=== PATIENT | female | born 1970 | race Caucasian/White ===

== ENCOUNTER → 2024-12-22 15:54 | Outpatient (BNVA) | payer OTHER, SELFPAY | PROVIDERS: Visit Provider Emergency Medicine | DX: S60.211A Contusion of right wrist, initial encounter (principal); W07.XXXA Fall from chair, initial encounter | CPT/HCPCS: 29125; 73090; 73110; 99203 ==

== ENCOUNTER → 2024-12-29 14:35 | Outpatient (BNVA) | payer OTHER, SELFPAY | PROVIDERS: Visit Provider Emergency Medicine | DX: S60.211D Contusion of right wrist, subsequent encounter (principal); W07.XXXD Fall from chair, subsequent encounter | CPT/HCPCS: 99213 ==

== ENCOUNTER → 2025-01-06 14:36 | Outpatient (BNVA) | payer OTHER, SELFPAY | PROVIDERS: Visit Provider Emergency Medicine | DX: S63.501D Unspecified sprain of right wrist, subsequent encounter (principal); S60.211D Contusion of right wrist, subsequent encounter; W07.XXXD Fall from chair, subsequent encounter | CPT/HCPCS: 99213 ==

== ENCOUNTER 2025-01-27 10:05 | Outpatient (REF) | payer OTHER, SELFPAY ==
--- NOTE | ~2025-01-27 | XR_ITS ---
EXAMINATION: XR WRIST, RIGHT CLINICAL INFORMATION: M79.641 - Pain in right hand COMPARISON: X-ray 12/22/2024 TECHNIQUE: PA, lateral, and oblique views of the right wrist. FINDINGS: No acute fracture, dislocation or suspicious bony lesion is identified Mild first CMC arthritis. Mild first IP joint arthritis. No erosions. No significant soft tissue swelling. No radiopaque foreign body. XR/XR wrist RT w scaphoid IMPRESSION: No radiographic evidence of acute osseous findings. Electronically signed by: Dani Anguiano MD 01/28/2025 12:55 PM EST
== END 2025-01-27 10:06 | disposition home or self-care (01) ==
LOC: HO.HOSX 10:05
DX: M25.531 Pain in right wrist (principal)
CPT/HCPCS: 73110; 99202

== ENCOUNTER 2025-01-27 13:11 | Outpatient (AMB) | payer OTHER, SELFPAY ==
--- NOTE | 2025-01-27 13:18 | A.OFFVIS_ITS ---
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 She was seen at [facility] on 12/29/24. She was given a Velcro wrist brace to wear but continued to have pain in the dorsal aspect of wrist that wraps around the thumb and occasionally wakes her up at night. Patient is taking Tylenol PRN with some relief. She denies any numbness, tingling, finger locking. She denies any previous fractures to right hand. Patient works as a Teacher for [employer]. Allergies No Known Allergies Allergy (Verified 01/27/25 13:20) HPI HPI MEDICAL CARE EVALUATION SPECIALIST-Right Wrist Sprain-WC DOI 12/22/2024: Details: Nubia is a 55 year old right hand dominant female who presents today as a New Patient with complaints of Right Wrist Pain after taking a fall while at work on 12/22/24. Patient states that she fell at work, and fell with most of her body weight on the right hand and wrist. She was seen at [facility] on 12/29/24. She was given a Velcro wrist brace to wear but continued to have pain in the dorsal and radial aspect of wrist that wraps around the thumb and occasionally wakes her up at night. Patient is taking Tylenol PRN with some relief. She denies any numbness, tingling, finger locking. She denies any previous fractures to right hand. Patient works as a Teacher for [employer]. [facility] Social History (Updated 01/27/25 @ 13:21 by SHAHIDA Mcgarry) Alcohol intake: never Patient Tobacco Use Status: Never used Tobacco Current occupational status: employed Current occupation: rt handed, teacher Review of Systems Const All systems reviewed & are unremarkable except as noted in HPI and below Physical Exam Vital Signs: BMI result Body Mass Index 40.3 Extrem Other: Patient is alert, oriented, and in no acute distress. Neuro: Normal sensation of the tips of all digits of the right hand at this time Vascular: Cap refill brisk Pain: Significant tenderness to palpation of the scaphoid tubercle of the right wrist Patient also reports tenderness to palpation about the anatomical snuffbox and radial styloid No tenderness to palpation on the distal ulna, ulnar styloid, DRUJ, or elsewhere in the right wrist ROM: Patient is able to make a closed fist and extend all digits of the right hand fully Range of motion of the right wrist in terms of flexion, extension is significantly limited due to pain Skin: No lacerations or abrasions. General: No ecchymosis, erythema, or evidence of infection. Psych: Appears grossly normal Affect normal Attitude cooperative Results Reviewed Results Reviewed: X-rays obtained in the office today and independently reviewed by me, Watson Askew PA-C, demonstrate questionable area of lucency on the distal aspect of the right scaphoid waist concerning for potential occult fracture versus nutrient vessel. Assessment & Plan Assessment & Plan (1) Tenderness of anatomical snuffbox: Code(s): M79.643 - Pain in unspecified hand Category: Medical Plan 1. Tenderness of anatomical snuffbox and scaphoid tubercle of right wrist Date of injury November 2024 Patient is educated about this condition Patient is educated about the typical diagnostic and treatment course At this time, due to the fact that the patient is still experiencing significant tenderness in the scaphoid tubercle and anatomical snuffbox more than 1 month from injury, I do feel that has most prudent to order an MRI of the right wrist to assess the health of the scaphoid and other bones of the right wrist In the meantime, patient is provided with a Velcro thumb spica splint to be worn like a cast except for when bathing No lifting with the right upper extremity Urgent MRI is ordered at this time Patient will follow-up after MRI for results review and discussion of further treatment options with Dr. Herrera Patient understands this and is amenable to this plan Orders: Orders MR wrist RT wo con Today M79.643 - Pain in unspecified hand XR wrist RT w scaphoid Today M79.641 - Pain in right hand Coding Level of Care Code New Pt Level 3 (41434) Diagnoses Tenderness of anatomical snuffbox M79.643
[2025-01-27 13:19] VITALS: BMI 40.3
--- OUTSIDE RECORDS SUMMARY | 2025-01-27 15:39 | XMS_ITS | Clinical Summary ---
Author Organization [facility] Address [address] [place] [id number] Phone Care Team Providers Care All Around Presser Name Role Phone Kamilla Mckeon MD Primary Care Provide r Allergies Active Allergy Reactions Criticality Noted Date Comments Pollen Extracts Sneezing 10/31/2024 Medications meloxicam (MOBIC) 7.5 MG tablet 1 tablet Orally Once a day; Duration: 30 day(s) Active progesterone (PROMETRIUM) 200 mg capsule TAKE 1 CAPSULE BY MOUTH EVERY DAY FOR 28 DAYS 5 Active estradioL (VIVELLE-DOT) 0.05 mg/24 hr 5 Active estradioL (ESTRACE) 0.01 % (0.1 mg/gram) vaginal cream INSERT 1 GRAM VAGINALLY TWICE A WEEK EVERY DAY AT BEDTIME 5 Active loratadine (CLARITIN) 10 mg tablet 1 tablet Orally Once a day; Duration: 30 day(s) Active ALPRAZolam (XANAX) 0.5 MG tablet 1 tablet Orally Twice a day Active magnesium 200 mg tablet Magnesium Active Lactobacillus acidophilus (PROBIOTIC ACIDOPHILUS ORAL) Probiotic Active ascorbic acid, vitamin C, (ASCORBIC ACID) 250 mg Chew Vitamin C Active GOLDENSEAL ORAL Goldenseal Act kristen omega 6-iqj-moh-fish oil (FISH OIL) 1,000 (120-180) mg Cap Fish Oil Active GARLIC OIL ORAL Garlic Acti ve calcium carbonate/vitam in D3 (CALCIUM 600 + D,3, ORAL) Calcium 600+D Active fluticasone propionate (FLONASE ALLERGY RELIEF) 50 mcg/actuation nasal spray Flonase Active multivit with minerals/lutein (MULTIVITAMIN 50 PLUS ORAL) Multivitamin Act kristen b complex vitamins capsule Take 1 capsule by mouth daily. Active olopatadine (PATANOL) 0.1 % ophthalmic solution Place 1 drop into each eye 2 (two) times a day. 5 mL 12 Active Active Problems Problem Noted Date Diagnosed Date Edema of right lower leg 10/31/2024 Food allergy 10/31/2024 Severe obesity 10/31/2024 Thyroid disorder 10/31/2024 Trigeminal neuralgia 10/31/2024 Encounters Date Type Department Care Team Description 10/31/2024 9:00 AM EDT Office Visit [facility] at [address] [address] [place] Vil[place]as, EVELIO Allergic conjunctivitis of left eye and rhinitis (Primary Dx) from Last 3 Months Immunizations No known immunizations Social History Tobacco Use Types Packs/Day Years Used Date Smoking Tobacco: Never Smokeless Tobacco: Never Education Answer Date Recorded Are you interested in more education? Not on juliann e 05/03/2024 Are you concerned about learning? Not on file 05/03/2024 No 05/03/2024 No 05/03/2024 Digital Access Answer Date Recorded No 05/03/2024 No 05/03/2024 Reliable internet access at home? Not on file 05/03/2024 Device with a working camera? Not on file Comments No Sex and Gender Information Value Date Recorded Sex Assigned at Not on file Legal Sex Female 3:02 PM EDT Gender Identity Not on file Sexual Orientation Not on file Last Filed Vital Signs Vital Sign Reading Time Taken Comments Blood Pressure 109/73 10/31/2024 9:03 AM EDT Pulse 74 10/31/2024 9:03 AM EDT Temperature 36.4 C (97.5 F) 10/31/2024 9:03 AM EDT Respiratory Rate 16 10/31/2024 9:03 AM EDT Oxygen Saturation 96% 10/31/2024 9:03 AM EDT Inhaled Oxygen Concentration - - Weight 108.9 kg (240 lb) 10/31/2024 9:03 AM EDT Height - - Body Mass Index - - Plan of Treatment Health Maintenance Due Date Last Done Comments Adult Td,Tdap Booster 1972 LIPID PANEL 1972 DEPRESSION SCREENING 1984 HEPATITIS C SCREENING 01/17/1990 HIV ONE-TIME SCREENING (18-65 YEARS) 01/17/1990 PAP SMEAR 01/17/1993 MAMMOGRAM 2012 COLOGUARD 01/17/2017 COLONOSCOPY 01/17/2017 COLORECTAL CANCER SCREENING 01/17/2017 FIT TEST 01/17/2017 FOBT 01/17/2017 SIGMOIDOSCOPY 01/17/2017 VIRTUAL COLONOSCOPY 01/17/2017 PNEUMOCOCCAL VACCINES (50+ years) (1 of 1 - PCV) 01/17/2022 ZOSTER VACCINES (1 of 2) 01/17/2022 INFLUENZA VACCINE (#1) 2024 , 12/28/2022, 12/05/2021, Additional history exists COVID-19 VACCINE ( - 2024- season) 2024 01/08/2024, 12/05/2021, 12/12/2020, Additional history exists RSV VACCINE (1 - 1-dose 75+ series) 01/17/2047 SMOKING STATUS SCREENING (Once After 26 Yrs) Completed 10/31/2024 HEPATITIS A VACCINES Aged Out No long er eligible based on patient's age to complete this topic HIB VACCINES Aged Out No longer eligi ble based on patient's age to complete this topic MENINGOCOCCAL VACCINES (ACWY) Aged Out No longer eligible based on patient's age to complete this topic MENINGOCOCCAL VACCINES (B) Aged Out N o longer eligible based on patient's age to complete this topic Medical Devices Not on file Insurance [facility] Care Teams All Around Presser Relationship Specialty Start Date End Date Kamilla Mckeon MD [address] [place] [id number] PCP - General Internal Medicine 05/03/24 Additional Source Comments The information contained in this document represents components of the legal health record. It is not the complete legal health record.[facility]
--- OUTSIDE RECORDS SUMMARY | 2025-01-27 15:39 | XMS_ITS | Patient Health Record ---
Author Organization [facility] Address [address] [place] [address] Care Team Providers Care Cement Side Laster Name Role Phone Kamilla Mckeon MD Primary Care Provider [place] Unavailable [phone] Allergies No Known Allergies Reason For Referral No Information Medications Medication SIG (Take, Route, Fr equency, Duration) Notes Start Date End Date Status Xanax 0.5 MG 1 tablet Orally Twice a day Not-Taking Fish Oil Active Claritin 10 MG 1 tablet Orally Once a day; Duration: 30 day(s) Active Meloxicam 7.5 MG 1 tablet Orally Once a day; Duration: 30 day(s) Active Multivitamin Active Turmeric Active [place] Thyroid Not-T aking Garlic Active Calcium 600+D Not-Ta stu Magnesium Active Flonase Not-Taking Zinc Active Goldenseal Not-Takin g Vitamin C Active Probiotic Not-Taking Vitamin D Active Valtrex 500 MG 1 tablet Orally Once a day; Duration: 10 day(s) Not-Taking Social History Tobacco Use: Social History Observation Description Date Details (start date - stop date) Never Smoker NA - NA Tobacco Use/Smoking Question Answer Notes Are you a: nonsmoker Alcohol Screen Question Answer Notes Did you have a drink containing alcohol in the p ast year? No Points 0 Interpretation Negative Tobacco use other than smoking: Question Answer Notes Are you an other tobacco user? No Problems Problem Type SNOMED Code ICD Code Onset Dates Problem Status W/U Status Risk Notes Problem Plantar fascial fibromatosis ([id number]) Plantar fasciitis, bilateral (M72.2) Active confirmed Plan Of Treatment No Information Insurance Providers Payer Name Payer Address Payer Phone Subscriber Number Group Number Insured Name Patient Relationship to Insured Coverage Start Date Coverage End Date [facility] [address] [place] [address] [id number] Nubia Mcbride Self - patient is the insured Medical (General) History Medical History History ICD Code heel pain Knee Pain edema hip pain Thyroid disorder Trigeminal neuralgia Back,Hip,and Knee pain Broken bones thyroid Chicken pox Surgical History Surgery Date(Month/Year) tonsillectomy 05/1999
== END 2025-01-27 13:52 | disposition home or self-care (01) ==
LOC: HO.HOS 13:11
DX: M79.641 Pain in right hand (principal); M25.531 Pain in right wrist
CPT/HCPCS: 99203

== ENCOUNTER → 2025-01-27 13:13 | Outpatient (BNV) | payer OTHER, SELFPAY | PROVIDERS: Visit Provider Radiology Diagnostic Ultrasound | DX: M79.641 Pain in right hand (principal) | CPT/HCPCS: 73110 ==

== ENCOUNTER 2025-01-31 11:50 | Outpatient (REF) | payer OTHER, SELFPAY ==
--- NOTE | ~2025-01-31 | MR_ITS ---
CLINICAL HISTORY: M79.643 - Pain in unspecified hand --- Additional Notes or Special Instructions: Concern for occult scaphoid fracture MR right wrist without gadolinium Comparison: None provided Findings: There are no fractures. The scaphoid is intact. No joint effusion. There is some edema adjacent to the dorsal radiocarpal ligament perhaps indicating a sprain. Flexor and extensor tendons are intact. Intact triangular fibrocartilage complex. The flexor retinaculum is intact. Median and ulnar nerves are normal. There is evidence of ulnar impaction syndrome with mild edema along the inferior aspect of the lunate. IMPRESSION: 1. Intact scaphoid 2. Possible sprain of the dorsal radiocarpal ligament. 3. Evidence of ulnar impaction syndrome. This document has been electronically signed by: Karthik Dong MD on 01/31/2025 13:07:17
== END 2025-01-31 11:51 | disposition home or self-care (01) ==
LOC: HO.MRI 11:50
DX: M79.641 Pain in right hand (principal)
CPT/HCPCS: 73221

== ENCOUNTER → 2025-01-31 12:01 | Outpatient (BNV) | payer OTHER, SELFPAY | PROVIDERS: Visit Provider Radiology Diagnostic Radiology | DX: M24.831 Other specific joint derangements of right wrist, not elsewhere classified (principal) | CPT/HCPCS: 73221 ==

== ENCOUNTER 2025-02-10 08:57 | Outpatient (AMB) | payer OTHER, SELFPAY ==
--- NOTE | 2025-02-10 09:20 | MHC.OFFVIS ---
Vital Signs 02/10/25 09:25 Height 5 ft 4 in Weight 235 lb BMI 40.3 Intake Visit Reasons: OV: RT Wrist MRI Review Intake Note: Nubia is a 55 year old right hand dominant female who presents today for a Right Wrist MRI review and Follow Up of her Right Wrist Anatomical Snuffbox and Scaphoid Tubercle Tenderness. At today's visit she reports that the right thumb is having numbness, weakness and tender to the touch. She added that the right wrist feels stiff and the forearm feels tight. IMPRESSION 01/31/25: 1. Intact scaphoid 2. Possible sprain of the dorsal radiocarpal ligament. 3. Evidence of ulnar impaction syndrome. Allergies No Known Allergies Allergy (Verified 01/27/25 13:20) HPI HPI OV: RT Wrist MRI Review: Details: Nubia is a 55 year old right hand dominant female who presents today for a Right Wrist MRI review and Follow Up of her Right Wrist Anatomical Snuffbox and Scaphoid Tubercle Tenderness. At today's visit she reports that the right thumb is having numbness, weakness and tender to the touch. She added that the right wrist feels stiff and the forearm feels tight. The patient does report that her pain has improved slightly since previous evaluation. IMPRESSION 01/31/25: 1. Intact scaphoid 2. Possible sprain of the dorsal radiocarpal ligament. 3. Evidence of ulnar impaction syndrome. [facility] Social History (Updated 01/27/25 @ 13:21 by SHAHIDA Mcgarry) Alcohol intake: never Patient Tobacco Use Status: Never used Tobacco Current occupational status: employed Current occupation: rt handed, teacher Review of Systems Const All systems reviewed & are unremarkable except as noted in HPI and below Physical Exam Vital Signs: BMI result Body Mass Index 40.3 Extrem Other: Patient is alert, oriented, and in no acute distress. Neuro: Normal sensation of the tips of all digits of the right hand at this time Vascular: Cap refill brisk Pain: Mild tenderness to palpation of the scaphoid tubercle of the right wrist Patient also reports [id number] tenderness to palpation about the anatomical snuffbox and radial styloid Positive Patricia on the right No tenderness to palpation on the distal ulna, ulnar styloid, DRUJ, or elsewhere in the right wrist ROM: Patient is able to make a closed fist and extend all digits of the right hand fully Range of motion of the right wrist in terms of flexion, extension is still fairly limited due to pain, though improved Skin: No lacerations or abrasions. General: No ecchymosis, erythema, or evidence of infection. Psych: Appears grossly normal Affect normal Attitude cooperative Assessment & Plan Assessment & Plan (1) Sprain of radiocarpal ligament of right wrist: Code(s): S63.521A - Sprain of radiocarpal joint of right wrist, initial encounter Category: Medical (2) Ulnar impaction syndrome: Code(s): M25.839 - Other specified joint disorders, unspecified wrist Category: Medical (3) De Quervain's tenosynovitis, right: Code(s): M65.4 - Radial styloid tenosynovitis [de Quervain] Category: Medical (4) Tenderness of anatomical snuffbox: Code(s): M79.643 - Pain in unspecified hand Category: Medical Plan 1. Tenderness of anatomical snuffbox and scaphoid tubercle of right wrist 2. Right de Quervain tenosynovitis 3. Radial carpal ligament sprain of right wrist 4. Right ulnar impaction syndrome Date of injury November 2024 Patient is educated about this condition Patient is educated about the typical diagnostic and treatment course No evidence of scaphoid fracture on MRI MRI does show radiocarpal ligament sprain and ulnar impaction syndrome Velcro wrist splint to be worn with daytime activities 2 lb weight limit with the right upper extremity OT ordered for range of motion and strengthening of the right hand in setting of all of the above conditions Patient will follow-up in 4-6 weeks to assess pain and range of motion Patient understands this and is amenable to this plan Orders: Orders OT Evaluation and Treatment Today M25.839 - Other specified joint disorders, unspecified wrist, M65.4 - Radial styloid tenosynovitis [de Quervain], S63.521A - Sprain of radiocarpal joint of right wrist, initial encounter Coding Level of Care Code Est Pt Level 3 (20467) Diagnoses Sprain of radiocarpal ligament of right wrist S63.521A Ulnar impaction syndrome M25.839 De Quervain's tenosynovitis, right M65.4 Tenderness of anatomical snuffbox M79.643
[2025-02-10 09:25] VITALS: BMI 40.3
--- OUTSIDE RECORDS SUMMARY | 2025-02-10 09:37 | XMS_ITS | Clinical Summary ---
Author Organization [facility] Address [address] [place] [address] Phone Care Team Providers Care Nougat Candy Maker Helper Name Role Phone Kamilla Mckeon MD Primary [...] Active GOLDENSEAL ORAL Goldenseal Act kristen omega 9-cot-glr-fish oil (FISH OIL) 1,000 (120-180) mg Cap [...] 10/31/2024 Thyroid disorder 10/31/2024 Trigeminal neuralgia 10/31/2024 Immunizations No known immunizations Social History Tobacco [...] topic Medical Devices Not on file Insurance [facility] [place] [address] [facility] Care Teams Nougat Candy Maker Helper Relationship Specialty Start Date End Date Kamilla Mckeon MD [address] [id number] PCP - General Internal Medicine 05/03/24 Additional Source Comments The information contained in this document represents components of the legal health record. It is not the complete legal health record.[facility]
== END 2025-02-10 10:00 | disposition home or self-care (01) ==
LOC: HO.HOS 08:58
DX: S63.521A Sprain of radiocarpal joint of right wrist, initial encounter (principal); M25.831 Other specified joint disorders, right wrist; M65.4 Radial styloid tenosynovitis [de Quervain]; M79.641 Pain in right hand
CPT/HCPCS: 99213

== ENCOUNTER → 2025-02-10 08:57 | Outpatient (BNVA) | payer OTHER, SELFPAY | DX: Z71.2 Person consulting for explanation of examination or test findings (principal); S63.521A Sprain of radiocarpal joint of right wrist, initial encounter; M65.4 Radial styloid tenosynovitis [de Quervain]; M79.641 Pain in right hand; M25.831 Other specified joint disorders, right wrist | CPT/HCPCS: 99212 ==